=== PATIENT | male | born 1970 | race Caucasian/White ===

== ENCOUNTER → 2016-12-17 | Outpatient (CLI) | payer OTHER ==
--- NOTE | 2016-12-17 10:07 | Diagnostic Imaging Report ---
PROCEDURE: US Gallbladder. TECHNIQUE: Multiple real-time grayscale images were obtained over the right upper quadrant in various projections. INDICATION: Right upper quadrant pain and diarrhea COMPARISON: None FINDINGS: The liver appears unremarkable. There is no biliary dilatation although the common bile duct is not well demonstrated. The gallbladder appears unremarkable. The pancreas is not well seen. The right kidney measures 9.5 cm in length and appears normal. There is no sonographic Escobar sign or ascites. IMPRESSION: No acute abnormality is seen. Limited visualization of the common bile duct and pancreas, however. Dictated by: Dictated on workstation # [id number]
== END ==
LOC: RAD 07:01
PROVIDERS: ATTEND Surgery
DX: R10.11 Right upper quadrant pain (principal); R19.7 Diarrhea, unspecified
CPT/HCPCS: 76705

== ENCOUNTER 2019-10-07 09:07 | Outpatient (RCR) | payer OTHER ==
[~2019-10-07] VITALS: Ht 180.3 cm; Wt 83.3 kg
[~2019-10-07 09:07] MED LIST: MULT-1102 PO
== END 2020-01-03 | disposition home or self-care (01) ==
LOC: PREOP 09:07
PROVIDERS: ATTEND Surgery
DX: Z01.818 Encounter for other preprocedural examination (principal); Z12.11 Encounter for screening for malignant neoplasm of colon

== ENCOUNTER → 2020-08-01 | Outpatient (CLI) | payer BC, OTHER ==
[~2020-08-01] VITALS: Ht 180.3 cm; Wt 84.0 kg
[~2020-08-01] MED LIST changes: +MELA10TA PO; +PANT40TA2 PO
== END | disposition home or self-care (01) ==
LOC: PREOP 05:36
PROVIDERS: ATTEND Surgery
DX: Z01.818 Encounter for other preprocedural examination (principal)

== ENCOUNTER 2020-08-03 10:44 | Day surgery (SDC) | payer BC, OTHER ==
[~2020-08-03] VITALS: Ht 180.3 cm; Wt 84.0 kg
[~2020-08-03 10:44] MED LIST changes: -PANT40TA2 PO
[2020-08-03] MEDS ORDERED: HURRICAINE EXT TUBE (BENZOCAINE) XX PRN (10:45)
[2020-08-03] MEDS ORDERED: LACTATED RINGERS 1,000 ML IV STA (10:45)
[2020-08-03 11:05] VITALS: BP 135/89
[2020-08-03] MEDS ORDERED: HURRICAINE EXT TUBE (BENZOCAINE) ONE (11:07)
[2020-08-03] MEDS ORDERED: LIDOCAINE JELLY 2% 6 ML SYRINGE ONE (11:07)
--- NOTE | 2020-08-03 11:18 | Conscious Sedation/ASA ---
Conscious Sedation Pre-Proced Time 11:00 ASA Score 2 For ASA 3 and 4: Consider anesthesia and medical clearance. Also, for patients with a history of failed moderate sedation consider anesthesia. Airway Lungs Heart ASA score ASA 1: a normal healthy patient ASA 2: a patient with a mild systemic disease (mid diabetes, controlled hypertension, obesity ASA 3: a patient with a severe systemic disease that limits activity (angina, COPD, prior Myocardial infarction) ASA 4: a patient with an incapacitating disease that is a constant threat to life (CHF, renal failure) ASA 5: a moribund patient not expected to survive 24 hrs. (ruptured aneurysm) ASA 6: a declared brain- patient whose organs are being harvested. For emergent operations, add the letter E after the classification Mallampati Classification Grade 2 Sedation Plan Analgesia, Amnesia, Plan communicated to team members, Discussed options with patient/fam, Discussed risks with patient/fam The patient is an appropriate candidate to undergo the planned procedure, sedation, and anesthesia. The patient immediately re-assessed prior to indication. ARIANA ALAN MD Aug 03, 2020 11:18
[2020-08-03] MEDS ORDERED: PANT40TA2 PO (11:19)
[2020-08-03] MEDS ORDERED: proPOfol 200 MG/20 ML (DIPRIVAN) VIAL IV ONE (11:20)
--- NOTE | 2020-08-03 11:20 | Discharge Inst-Surgical ---
D/C Lap Instructions-KIDO New, Converted, or Re-Newed RX: RX on Chart Follow Up Appt in 2 weeks Activity as tolerated High Fiber Diet 25g or more per day Avoid Alcohol, Caffeine, Spicy [place] and Acid foods. Drink 64 fluid oz or more of fluids per day. Symptoms to Report: Fever over 101 degree F, Nausea/Vomiting If any problems/questions: Contact your physician or go to Emergency Room ARIANA ALAN MD Aug 03, 2020 11:20
[2020-08-03] MEDS ORDERED: MIDAZOLAM 2 MG/2 ML (VERSED) VIAL ONE ×2 (11:21→11:34)
[2020-08-03] MEDS ORDERED: HYDROcodone/APAP 5 MG/325 MG (LORTAB) TAB PO PRN (11:30)
[2020-08-03] MEDS ORDERED: ONDANSETRON 4 MG/2 ML (SDV) Z0FRAN IVP PRN (11:30)
[2020-08-03] MEDS ORDERED: ACETAMINOPHEN 325 MG TABLET PO PRN (11:30)
[2020-08-03] MEDS ORDERED: morphine INJ 10 MG/ML 1ML (SYR OR VIAL) IVP PRN ×2 (11:30)
[2020-08-03] MEDS ORDERED: LIDOCAINE JELLY 2% 6 ML SYRINGE TOP ONE (12:00)
[2020-08-03 12:07] VITALS: BP 106/72
[2020-08-03 12:12] VITALS: BP 108/72
[2020-08-03 12:15] VITALS: BP 108/72
--- NOTE | 2020-08-03 12:16 | Anesthesia-General Post-Op ---
MAC Patient Condition Mental Status/LOC: Same as Preop Cardiovascular: Satisfactory Nausea/Vomiting: Absent Respiratory: Satisfactory Pain: Controlled Complications: Absent Post Op Complications Complications None Follow Up Care/Instructions Patient Instructions None needed. Anesthesiology Discharge Order Discharge Order Patient is doing well, no complaints, stable vital signs, no apparent adverse anesthesia problems. DIANE WILLIS DO Aug 03, 2020 12:16
[2020-08-03 12:45] VITALS: BP 130/86
--- NOTE | 2020-08-03 12:55 | Progress Note-Pre Operative ---
Pre-Operative Progress Note H&P Reviewed The H&P was reviewed, patient examined and no changes noted. Date Seen by Provider: Aug 03, 2020 Time Seen by Provider: 11:00 Date H&P Reviewed: Aug 03, 2020 Time H&P Reviewed: 11:00 Pre-Operative Diagnosis: GERD, screening ARIANA ALAN MD Aug 03, 2020 12:55
--- NOTE | 2020-08-03 12:55 | Progress Note-Post Operative ---
Post-Operative Progess Note Surgeon (s)/Recreation Facilities Supervisor (s) Surgeon ARIANA ALAN MD Recreation Facilities Supervisor: none Pre-Operative Diagnosis GERD, screening Post-Operative Diagnosis reflux esophagitis(stage 2), small HH(2cm), moderated gastritis. chronic stage 2 ext and int hemorrhoids, mild sigmoid diverticulosis. Procedure & Operative Findings Date of Procedure 08/03/20 Procedure Performed/Findings EGD wtih bx. colonoscopy Anesthesia Type mac Estimated Blood Loss Estimated blood loss (mL): minimal Specimens/Packing Specimens Removed ge jxn, antrum ARIANA ALAN MD Aug 03, 2020 12:55
[2020-08-03 13:00] VITALS: BP 130/86
--- NOTE | 2020-08-03 18:10 | OPERATIVE REPORT ---
DATE OF SERVICE: 08/03/2020 ATTENDING PRIMARY CARE PHYSICIAN: Homer Vitale MD PREOPERATIVE DIAGNOSES: Gastroesophageal reflux disease, screening colonoscopy. POSTOPERATIVE DIAGNOSES: Reflux esophagitis stage II, small hiatal hernia 2 cm in size, moderate gastritis, mild chronic stage II external and internal hemorrhoids, very mild sigmoid diverticulosis. PROCEDURE: EGD with biopsy, colonoscopy. SURGEON: Ariana Alan MD. ANESTHESIA: Monitored anesthesia care. ESTIMATED BLOOD LOSS: Minimal. FINDINGS: Same as postoperative diagnoses. DISPOSITION: The patient tolerated the procedure well. INDICATIONS: The patient is a 50-year-old male who has had issues with gastroesophageal reflux disease on an intermittent basis for the past several years; however, more related to his diet. He states that he does take [id number] antacids significantly. He also is in need of screening colonoscopy. He has not had a colonoscopy up to this point in his life. He does have some intermittent episodes of constipation and did notice a small amount of self-limited blood per rectum. He does not report any family history of colon cancer. DESCRIPTION OF PROCEDURE: The patient was brought to the endoscopy suite, laid in the left lateral decubitus position. After adequate IV pain and sedative medications and monitored anesthesia care, the mouth piece was applied. The endoscope was then placed in the mouth, visualizing the pharynx and hypopharyngeal region. Vocal cords, epiglottis and vallecula identified and appeared to be normal. The endoscope was then gently intubated into the esophageal opening and esophagus insufflated. The endoscope was then advanced to the first, second and third portion of the esophagus at the level of the GE junction, a reflux esophagitis stage II identified. There were no ulcers or strictures identified in this region. A biopsy was taken of the GE junction with forceps with visualization of good hemostasis. The endoscope was then advanced in the stomach and endoscope retroflexed, visualizing a small hiatal hernia approximately 2 cm in size. There was a moderate severity gastritis. No formal ulcerations, polyps, or any neoplasms. A biopsy was taken of the antrum to rule out H. pylori with visualization of good hemostasis. The endoscope was then advanced through the pylorus into the first and second portions of the duodenum, which appeared normal with no distal obstructions. The endoscope was slowly withdrawn while taking a second look and suctioning of residual air with no additional findings. We then proceeded with the colonoscopy portion of the procedure. A digital rectal examination was performed, which revealed mild chronic stage II external and internal hemorrhoids, not actively edematous nor inflamed and no bleeding. Normal sphincter tone was felt and there were no palpable masses. The prostate gland was palpable and appeared normal. The endoscope was then intubated into the anus and rectum gently insufflated. The endoscope was then advanced through the valves of Rodriguez of the rectum with no polyps or any neoplasms identified. We then proceeded through the sigmoid colon where a few isolated small diverticula identified. The endoscope was then advanced to the remainder of the descending, transverse and ascending colon to the cecum. These segments were normal. There were no polyps or any neoplasms identified throughout the colon or rectum. The endoscope was then slowly withdrawn while taking a second look and suctioning of residual air with no additional findings. The patient tolerated the procedure well. We will recommend the necessary lifestyle and diet accommodation including small and more frequent meals, avoidance of eating at night as well as head elevation while lying supine. We also recommend moderation of alcoholic and caffeinated beverages as well as spicy, greasy and acidic foods. We will also start him on Protonix 40 mg daily. We will also recommend incorporation of a fiber supplement and should equal at least 30 grams of fiber daily to promote soft stools on a daily basis. From a colonoscopy standpoint, no polyps were identified and if he is asymptomatic, does not need another one for another 10 years. Job ID: [id number] DocumentID: [id number] Dictated Date: 08/03/2020 12:09:33 Parts Room Clerk Date: 08/03/2020 18:10:04 Dictated By: ARIANA ALAN MD
== END 2020-08-03 13:00 | disposition home or self-care (01) ==
LOC: ENDO 10:44
PROVIDERS: ATTEND Surgery
DX: Z12.11 Encounter for screening for malignant neoplasm of colon (principal); K21.00 Gastro-esophageal reflux disease with esophagitis, without bleeding; K44.9 Diaphragmatic hernia without obstruction or gangrene; K64.1 Second degree hemorrhoids; K57.30 Diverticulosis of large intestine without perforation or abscess without bleeding; K29.70 Gastritis, unspecified, without bleeding; Z79.899 Other long term (current) drug therapy
CPT/HCPCS: 88305

== ENCOUNTER → 2021-01-29 | Outpatient (CLI) | payer BC, OTHER ==
[~2021-01-29] MED LIST changes: +PANT40TA2 PO
--- NOTE | 2021-01-29 16:07 | Diagnostic Imaging Report ---
EXAM: PA and lateral chest at 3:42 PM INDICATION: Fell, lower rib pain. COMPARISON: There are no prior studies available for comparison. FINDINGS: The PA view does show there is a displaced fracture of the lateral aspect of the left 7th rib. The fracture fragments are displaced by approximately one-half the width of the rib shaft. No other displaced or nondisplaced rib fracture is identified. There is no sign of a pneumothorax or contusion on the left either. The lungs seem generally clear and well aerated. The heart size is within normal limits. The mediastinum is not widened. The osseous structures are intact. IMPRESSION: There is a displaced fracture of the lateral aspect of the left 7th rib. No other acute bony abnormality is noted and there is no sign of an injury to the underlying left lung. Dictated by: Dictated on workstation # [id number]
== END ==
LOC: RAD 15:23
PROVIDERS: ATTEND Nurse Practitioner Family
DX: S22.32XA Fracture of one rib, left side, initial encounter for closed fracture (principal); X58.XXXA Exposure to other specified factors, initial encounter
CPT/HCPCS: 71046